=== PATIENT | female | born 1935 | race Caucasian/White ===

== ENCOUNTER → 2016-09-22 | Outpatient (CLI) | payer MEDICARE, OTHER ==
[~2016-09-22] MED LIST: BUMETANIDE2 MG PO; BYSTOLIC20 MG PO; DOXAZOSIN MESYLA1 MG PO; FLECAINIDE ACET50 MG PO; NORCO 5-325 MG1 TAB PO; OCEAN NASAL) (A44 ML NOSE; PROTONIX40 MG PO; SYNTHROID50 MCG PO; THERA-VITE W/ B1 TAB PO; ULTRAM50 MG PO
== END | disposition disaster alternative care site (69) ==
LOC: GBCOE 09:57
DX: Z12.31 Encounter for screening mammogram for malignant neoplasm of breast (principal); Z85.3 Personal history of malignant neoplasm of breast
CPT/HCPCS: G0202